=== PATIENT | female | born 1960 | race Caucasian/White ===

== ENCOUNTER 2017-05-03 18:34 | Emergency (ER) | payer OTHER ==
[~2017-05-03] VITALS: Ht 154.9 cm; Wt 49.0 kg
[2017-05-03] MEDS ORDERED: IV NORMAL SALINE 1,000ML 1,000 ML IV SCH (19:19)
[2017-05-03] MEDS ORDERED: ONDANSETRON PF 4 MG/2 ML VIAL. IV ONE (19:30)
[2017-05-03 19:48] LABS: BASO # 0.1 x10^3/uL (0.0-0.2); BASO % 1 % (0-3); EOS # 0.2 x10^3/uL (0.0-0.7); EOS % 1 % (0-3); HEMATOCRIT 43.9 % (36.0-47.0); LYMPH # 2.5 x10^3/uL (1.0-4.8); LYMPH % 17 % (24-48); MEAN CORPUSCULAR HEMOGLOBIN 31 pg (25-35); MEAN CORPUSCULAR HGB CONC 34 g/dL (31-37); MEAN CORPUSCULAR VOLUME 91 fL (79-100); MONO # 1.5 x10^3/uL (0.0-1.1); MONO % 10 % (0-9); NEUT # 10.3 x10^3uL (1.8-7.7); NEUT % 71 % (31-73); PLATELET COUNT 378 x10^3/uL (140-400); RED BLOOD COUNT 4.83 x10^6/uL (3.50-5.40); RED CELL DISTRIBUTION WIDTH 13.4 % (11.5-14.5); WHITE BLOOD COUNT 14.6 x10^3/uL (4.0-11.0)
[2017-05-03 19:48] LABS: BILIRUBIN,URINE NEG (NEG); CLARITY,URINE TURBID; COLOR,URINE YELLOW; GLUCOSE,URINE NEG (NEG); NITRITE,URINE NEG (NEG); UROBILINOGEN,URINE 4 mg/dL (0.2 mg/dL)
[2017-05-03 19:56] LABS: ALBUMIN/GLOBULIN RATIO 1.4 (1.0-1.7); CALCIUM 9.2 mg/dL (8.5-10.1); CREATININE 0.9 mg/dL (0.6-1.0); GFR 64.1; POTASSIUM 3.6 mmol/L (3.5-5.1); TOTAL BILIRUBIN 0.5 mg/dL (0.2-1.0); TOTAL PROTEIN 6.8 g/dL (6.4-8.2)
[2017-05-03 19:58] LABS: BACTERIA,URINE 0 /HPF (0-FEW); SQUAMOUS EPITHELIAL CELL,UR FEW /LPF; WBC,URINE OCC /HPF (0-4)
[2017-05-03 19:59] LABS: AMORPHOUS SEDIMENT,UR PRESENT /HPF
[2017-05-03] MEDS ORDERED: SUCR1TAB35 PO (20:52)
--- NOTE | 2017-05-03 20:53 | PHYS DOC ---
Past History Past Medical History: Anxiety, GERD Past Surgical History: Cholecystectomy Alcohol Use: None Drug Use: None Adult General Chief Complaint Chief Complaint: ABDOMINAL PAIN HPI HPI Patient is a 57 year old F who presents with constant crampy mid abdominal pain associated with nausea. She states that she had an episode of diarrhea just after the onset of symptoms. Just prior to her symptoms she did eat dinner. She had no symptoms prior to dinner and has had no symptoms previous. She feels that her symptoms resolved without intervention just prior to evaluation. She does have a history of anxiety and states that this episode felt similar to previous panic attacks. She has no other exacerbating or alleviating factors. She has no other associated symptoms. Review of Systems Review of Systems Constitutional: Denies fever or chills [] Eyes: Denies change in visual acuity, redness, or eye pain [] HENT: Denies nasal congestion or sore throat [] Respiratory: Denies cough or shortness of breath [] Cardiovascular: No additional information not addressed in HPI [] GI: Negative except history of present illness : Denies dysuria or hematuria [] Musculoskeletal: Denies back pain or joint pain [] Integument: Denies rash or skin lesions [] Neurologic: Denies headache, focal weakness or sensory changes [] Endocrine: Denies polyuria or polydipsia [] Family History Family History Noncontributory Current Medications Current Medications Current Medications Medications (Trade) Dose Ordered Sig/Donnie Start Time Stop Time Status Last Admin Dose Admin Ondansetron HCl (Zofran) 4 mg 1X ONCE 05/03/17 19:30 05/03/17 19:42 DC 05/03/17 19:50 4 MG Sodium Chloride 1,000 ml @ 1,000 mls/hr Q1H 05/03/17 19:19 05/03/17 20:18 DC 05/03/17 19:50 1,000 MLS/HR Allergies Allergies Allergies Coded Allergies Type Severity Reaction Last Updated Verified No Known Drug Allergies 05/03/17 No Physical Exam Physical Exam Constitutional: Well developed, well nourished, no acute distress, non-toxic appearance. [] HENT: Normocephalic, atraumatic, bilateral external ears normal, oropharynx moist, no oral exudates, nose normal. [] Eyes: EOMI, conjunctiva normal, no discharge. [] Neck: Normal range of motion, no tenderness, supple, no stridor. [] Cardiovascular:Heart rate regular rhythm, no murmur [] Lungs & Thorax: Bilateral breath sounds clear to auscultation [] Abdomen: Bowel sounds normal, soft, no tenderness, no masses, no pulsatile masses. [] Skin: Warm, dry, no erythema, no rash. [] Back: No tenderness, no CVA tenderness. [] Extremities: No tenderness, no cyanosis, no clubbing, ROM intact, no edema. [] Neurologic: Alert and oriented X 3, normal motor function, normal sensory function, no focal deficits noted. [] Psychologic: Affect normal, judgement normal, mood normal. [] Current Patient Data Vital Signs Vital Signs Date Time Temp Pulse Resp B/P (MAP) Pulse Ox O2 Delivery O2 Flow Rate FiO2 05/03/17 18:40 98.0 70 16 100 Room Air Lab Results Laboratory Tests Test 05/03/17 18:45 05/03/17 19:25 Urine Collection Type Unknown Urine Color Yellow Urine Clarity Turbid Urine pH 8.0 Urine Specific [place] 1.015 Urine Protein 30 mg/dl (NEG-TRACE) Urine Glucose (UA) Neg mg/dL (NEG) Urine Ketones (Stick) Neg mg/dL (NEG) Urine Blood Neg (NEG) Urine Nitrite Neg (NEG) Urine Bilirubin Neg (NEG) Urine Urobilinogen Dipstick 4 mg/dL (0.2 mg/dL) Urine Leukocyte Esterase Trace (NEG) Urine RBC 1-2 /HPF (0-2) Urine WBC Occ /HPF (0-4) Urine Squamous Epithelial Cells Few /LPF Urine Amorphous Sediment Present /HPF Urine Bacteria 0 /HPF (0-FEW) White Blood Count 14.6 x10^3/uL (4.0-11.0) H Red Blood Count 4.83 x10^6/uL (3.50-5.40) Hemoglobin 15.0 g/dL (12.0-15.5) Hematocrit 43.9 % (36.0-47.0) Mean Corpuscular Volume 91 fL (79-100) Mean Corpuscular Hemoglobin 31 pg (25-35) Mean Corpuscular Hemoglobin Concent 34 g/dL (31-37) Red Cell Distribution Width 13.4 % (11.5-14.5) Platelet Count 378 x10^3/uL (140-400) Neutrophils (%) (Auto) 71 % (31-73) Lymphocytes (%) (Auto) 17 % (24-48) L Monocytes (%) (Auto) 10 % (0-9) H Eosinophils (%) (Auto) 1 % (0-3) Basophils (%) (Auto) 1 % (0-3) Neutrophils # (Auto) 10.3 x10^3uL (1.8-7.7) H Lymphocytes # (Auto) 2.5 x10^3/uL (1.0-4.8) Monocytes # (Auto) 1.5 x10^3/uL (0.0-1.1) H Eosinophils # (Auto) 0.2 x10^3/uL (0.0-0.7) Basophils # (Auto) 0.1 x10^3/uL (0.0-0.2) Sodium Level 135 mmol/L (136-145) L Potassium Level 3.6 mmol/L (3.5-5.1) Chloride Level 97 mmol/L (98-107) L Carbon Dioxide Level 32 mmol/L (21-32) Anion Gap 6 (6-14) Blood Urea Nitrogen 12 mg/dL (7-20) Creatinine 0.9 mg/dL (0.6-1.0) Estimated GFR (Cockcroft-Gault) 64.1 BUN/Creatinine Ratio 13 (6-20) Glucose Level 96 mg/dL (70-99) Calcium Level 9.2 mg/dL (8.5-10.1) Total Bilirubin 0.5 mg/dL (0.2-1.0) Aspartate Amino Transferase (AST) 17 U/L (15-37) Alanine Aminotransferase (ALT) 21 U/L (14-59) Alkaline Phosphatase 85 U/L (46-116) Total Protein 6.8 g/dL (6.4-8.2) Albumin 4.0 g/dL (3.4-5.0) Albumin/Globulin Ratio 1.4 (1.0-1.7) Lipase 152 U/L (73-393) EKG EKG [] Radiology/Procedures Radiology/Procedures [] Course & Med Decision Making Course & Med Decision Making Pertinent Labs and Imaging studies reviewed. (See chart for details) Further imaging, labs and other testing were declined. Her symptoms improved without intervention. Dragon Disclaimer Dragon Disclaimer This chart was dictated in whole or in part using Voice Recognition software in a busy, high-work load, and often noisy Emergency Department environment. It may contain unintended and wholly unrecognized errors or omissions. Departure Departure: Impression: Primary Impression: Gastritis Disposition: HOME, SELF-CARE Condition: STABLE Referrals: IAN PHELPS MD (PCP) Patient Instructions: Gastritis, Adult Additional Instructions: Adriane was seen in the emergency department for abdominal pain. No emergency medical condition was found on history or physical exam. She did have normal labs. Her symptoms are most consistent with gastritis. She is given a prescription for Carafate to take prior to meals and advised follow-up with her primary care doctor in the next 3-5 days for further management. Scripts Sucralfate (CARAFATE) 1 Gm Tablet 1 TAB PO QID for 14 Days, #56 TAB 1 Refill Take prior to meals Prov: LEESA ACEVES MD 05/03/17 Problem Qualifiers Primary Impression: Gastritis Gastritis type: unspecified gastritis Chronicity: acute Gastritis bleeding : without bleeding Qualified Codes: K29.00 - Acute gastritis without bleeding LEESA ACEVES MD May 03, 2017 20:52
[2017-05-03 21:00] VITALS: BP 147/86
== END 2017-05-03 21:00 | disposition home or self-care (01) ==
LOC: ER 18:34
DX: K29.00 Acute gastritis without bleeding (principal); K21.9 Gastro-esophageal reflux disease without esophagitis; F41.9 Anxiety disorder, unspecified
CPT/HCPCS: 36415; 80053; 81001; 83690; 85025; 96361; 96374; 99284; J2405; J7030

== ENCOUNTER 2017-06-01 00:13 | Inpatient (IN) | payer OTHER ==
[~2017-06-01] VITALS: Ht 154.9 cm; Wt 47.3 kg
[~2017-06-01 00:13] MED LIST: SUCR1TAB35 PO
[2017-06-01] MEDS ORDERED: IV NORMAL SALINE 1,000ML 1,000 ML IV ONE (00:45)
[2017-06-01] MEDS ORDERED: ONDANSETRON PF 4 MG/2 ML VIAL. IV ONE (00:45)
[2017-06-01 01:18] LABS: BASO # 0.1 x10^3/uL (0.0-0.2); BASO % 1 % (0-3); EOS # 0.2 x10^3/uL (0.0-0.7); EOS % 2 % (0-3); HEMATOCRIT 38.8 % (36.0-47.0); LYMPH # 4.9 x10^3/uL (1.0-4.8); LYMPH % 38 % (24-48); MEAN CORPUSCULAR HEMOGLOBIN 32 pg (25-35); MEAN CORPUSCULAR HGB CONC 36 g/dL (31-37); MEAN CORPUSCULAR VOLUME 89 fL (79-100); MONO # 1.2 x10^3/uL (0.0-1.1); MONO % 9 % (0-9); NEUT # 6.7 x10^3uL (1.8-7.7); NEUT % 51 % (31-73); PLATELET COUNT 359 x10^3/uL (140-400); RED BLOOD COUNT 4.38 x10^6/uL (3.50-5.40); RED CELL DISTRIBUTION WIDTH 12.8 % (11.5-14.5); WHITE BLOOD COUNT 13.2 x10^3/uL (4.0-11.0)
--- NOTE | 2017-06-01 01:22 | EKG ---
[address] [address] Test Date: 2017-06-01 Test Time: 00:57:27 Pat Name: RENEE MCNEIL Department: Room: Gender: F Teaching Aide: LORRIE : 1960 Requested By: TABITHA HARO Order Number: [id number] Reading MD: Measurements Intervals [place] Rate: 58 P: 45 HI: 196 QRS: 58 QRSD: 92 T: 59 QT: 458 QTc: 449 Interpretive Statements SINUS RHYTHM LEFT ATRIAL ABNORMALITY QRS(T) CONTOUR ABNORMALITY CONSISTENT WITH ANTERIOR INFARCT AGE UNDETERMINED ABNORMAL ECG RI6.01 Unconfirmed report No previous ECG available for comparison
[2017-06-01 01:26] LABS: ALBUMIN 4.1 g/dL (3.4-5.0); ALBUMIN/GLOBULIN RATIO 1.5 (1.0-1.7); CALCIUM 8.6 mg/dL (8.5-10.1); CREATININE 0.6 mg/dL (0.6-1.0); GFR 102.3; TOTAL BILIRUBIN 0.6 mg/dL (0.2-1.0); TOTAL PROTEIN 6.8 g/dL (6.4-8.2)
[2017-06-01 01:28] LABS: POTASSIUM 2.8 mmol/L (3.5-5.1)
[2017-06-01] MEDS ORDERED: DICYCLOMINE HCL 20 MG TABLET PO ONE (01:45)
[2017-06-01 02:00] LABS: BACTERIA,URINE 0 /HPF (0-FEW); BILIRUBIN,URINE NEG (NEG); CLARITY,URINE HAZY; COLOR,URINE STRAW; GLUCOSE,URINE NEG (NEG); NITRITE,URINE NEG (NEG); RBC,URINE RARE /HPF (0-2); SQUAMOUS EPITHELIAL CELL,UR OCC /LPF; UROBILINOGEN,URINE 0.2 mg/dL (0.2 mg/dL); WBC,URINE RARE /HPF (0-4)
[2017-06-01] MEDS ORDERED: MORPHINE SULFATE 2 MG/ML DISP.SYRIN. IV PRN (02:30)
[2017-06-01] MEDS ORDERED: ONDANSETRON PF 4 MG/2 ML VIAL. IV PRN (02:30)
[2017-06-01] MEDS ORDERED: NITROGLYCERIN SUBLINGUAL 0.4 MG BOTTLE OF 25. SL PRN (02:30)
--- NOTE | 2017-06-01 03:16 | EKG ---
[address] [address] Test Date: 2017-06-01 Test Time: 01:53:31 Pat Name: RENEE MCNEIL Department: Room: Gender: F Strategies Analyst: LORRIE : 1960 Requested By: TABITHA HARO Order Number: [id number] Reading MD: Measurements Intervals [place] Rate: 62 P: 60 [place]: 202 QRS: 51 QRSD: 84 T: 62 QT: 452 QTc: 461 Interpretive Statements SINUS RHYTHM QRS(T) CONTOUR ABNORMALITY CONSISTENT WITH ANTERIOR INFARCT AGE UNDETERMINED ABNORMAL ECG RI6.01 Unconfirmed report No previous ECG available for comparison
[2017-06-01] MEDS ORDERED: PANT40TA5 PO (03:45)
[2017-06-01] MEDS ORDERED: XOPENEX1.25 MG/3 NEB (03:45)
[2017-06-01] MEDS ORDERED: GUAI-108 PO (03:45)
[2017-06-01] MEDS ORDERED: MINO100C PO (03:45)
[2017-06-01] MEDS ORDERED: BENZ100C15 PO (03:45)
[2017-06-01] MEDS ORDERED: BUPR300T4 PO (03:45)
[2017-06-01] MEDS: IV NORMAL SALINE 1,000ML 1,000 ML IV SCH ×2 (04:20→18:14)
[2017-06-01] MEDS: POTASSIUM CHLORIDE 10MEQ 100 ML IV SCH ×4 (04:20→09:46)
[2017-06-01 04:29] VITALS: BP 160/78
[2017-06-01] MEDS ORDERED: MULT1TAB52 PO (04:59)
[2017-06-01] MEDS ORDERED: FISH12002 PO (04:59)
--- NOTE | 2017-06-01 06:01 | PHYS DOC ---
Past History Past Medical History: Bronchitis, Depression, Gallstones, GERD, Other Past Surgical History: Cholecystectomy Alcohol Use: None Drug Use: None Adult General Chief Complaint Chief Complaint: WEAKNESS/GENERALIZED HPI HPI Patient is a 57 year old female who presents with syncope. The patient reports onset of symptoms just prior to arrival, had onset of generalized weakness, lightheadedness, nausea, abdominal cramps. She lowered herself to the ground, may have lost consciousness. Denies fevers/chills, headache, vision changes, chest pain, shortness of breath, vomiting, diarrhea, dysuria, unilateral extremity numbness/weakness. She has history of bronchitis & has been taking steroids at home for acute exacerbation, today denies significant cough. Review of Systems Review of Systems Constitutional: Denies fever or chills Eyes: Denies change in visual acuity HENT: Denies nasal congestion or sore throat Respiratory: Denies cough or shortness of breath Cardiovascular: Denies chest pain or edema GI: Reports nausea. Denies abdominal pain, vomiting, bloody stools or diarrhea : Denies dysuria or hematuria Musculoskeletal: Denies back pain or joint pain Integument: Denies rash or skin lesions Neurologic: Denies headache, focal weakness or sensory changes All other systems were reviewed and found to be within normal limits, except as documented in this note. Current Medications Current Medications Current Medications Medications (Trade) Dose Ordered Sig/Donnie Start Time Stop Time Status Last Admin Dose Admin Ondansetron HCl (Zofran) 4 mg 1X ONCE 06/01/17 00:45 06/01/17 02:38 DC 06/01/17 01:00 4 MG Sodium Chloride 1,000 ml @ 1,000 mls/hr 1X ONCE 06/01/17 00:45 06/01/17 02:38 DC 06/01/17 00:59 1,000 MLS/HR Allergies Allergies Allergies Coded Allergies Type Severity Reaction Last Updated Verified No Known Drug Allergies 05/03/17 No Physical Exam Physical Exam Constitutional: Well developed, well nourished, no acute distress, non-toxic appearance. HENT: Normocephalic, atraumatic, bilateral external ears normal, oropharynx moist, posterior oropharynx mild erythema without tonsillar enlargment/exudate, nose normal. Eyes: PERRLA, EOMI, conjunctiva normal, no discharge. Neck: supple, no stridor. no meningismus. Cardiovascular: RRR, no murmurs, no edema. Lungs & Thorax: LCTAB, no wheezing, no respiratory distress. Abdomen: soft, no abdominal tenderness with palpation in all 4 quadrants, no rebound or guarding, no masses or pulsatile masses, nondistended. Skin: Warm, dry, no erythema, no rash. Back: No CVA tenderness. Extremities: No tenderness, no edema. Neurologic: Alert and oriented X 3, cranial nerves 2-12 grossly intact, symmetric strength/sensation to upper & lower extremities, no focal deficits noted. Psychologic: Affect normal, judgement normal, mood normal. Current Patient Data Vital Signs Vital Signs Date Time Temp Pulse Resp B/P (MAP) Pulse Ox O2 Delivery O2 Flow Rate FiO2 06/01/17 04:47 Room Air 06/01/17 04:29 97.7 67 16 160/78 (105) 96 Lab Results Laboratory Tests Test 06/01/17 00:51 06/01/17 01:40 White Blood Count 13.2 x10^3/uL (4.0-11.0) H Red Blood Count 4.38 x10^6/uL (3.50-5.40) Hemoglobin 14.0 g/dL (12.0-15.5) Hematocrit 38.8 % (36.0-47.0) Mean Corpuscular Volume 89 fL (79-100) Mean Corpuscular Hemoglobin 32 pg (25-35) Mean Corpuscular Hemoglobin Concent 36 g/dL (31-37) Red Cell Distribution Width 12.8 % (11.5-14.5) Platelet Count 359 x10^3/uL (140-400) Neutrophils (%) (Auto) 51 % (31-73) Lymphocytes (%) (Auto) 38 % (24-48) Monocytes (%) (Auto) 9 % (0-9) Eosinophils (%) (Auto) 2 % (0-3) Basophils (%) (Auto) 1 % (0-3) Neutrophils # (Auto) 6.7 x10^3uL (1.8-7.7) Lymphocytes # (Auto) 4.9 x10^3/uL (1.0-4.8) H Monocytes # (Auto) 1.2 x10^3/uL (0.0-1.1) H Eosinophils # (Auto) 0.2 x10^3/uL (0.0-0.7) Basophils # (Auto) 0.1 x10^3/uL (0.0-0.2) Sodium Level 124 mmol/L (136-145) L Potassium Level 2.8 mmol/L (3.5-5.1) *L Chloride Level 86 mmol/L (98-107) L Carbon Dioxide Level 31 mmol/L (21-32) Anion Gap 7 (6-14) Blood Urea Nitrogen 6 mg/dL (7-20) L Creatinine 0.6 mg/dL (0.6-1.0) Estimated GFR (Cockcroft-Gault) 102.3 BUN/Creatinine Ratio 10 (6-20) Glucose Level 102 mg/dL (70-99) H Calcium Level 8.6 mg/dL (8.5-10.1) Total Bilirubin 0.6 mg/dL (0.2-1.0) Aspartate Amino Transferase (AST) 22 U/L (15-37) Alanine Aminotransferase (ALT) 25 U/L (14-59) Alkaline Phosphatase 85 U/L (46-116) Troponin I Quantitative < 0.017 ng/mL (0-0.055) Total Protein 6.8 g/dL (6.4-8.2) Albumin 4.1 g/dL (3.4-5.0) Albumin/Globulin Ratio 1.5 (1.0-1.7) Lipase 95 U/L (73-393) Urine Collection Type Unknown Urine Color Straw Urine Clarity Hazy Urine pH 8.5 Urine Specific [place] 1.015 Urine Protein Neg (NEG-TRACE) Urine Glucose (UA) Neg mg/dL (NEG) Urine Ketones (Stick) Neg mg/dL (NEG) Urine Blood Trace (NEG) Urine Nitrite Neg (NEG) Urine Bilirubin Neg (NEG) Urine Urobilinogen Dipstick 0.2 mg/dL (0.2 mg/dL) Urine Leukocyte Esterase Trace (NEG) Urine RBC Rare /HPF (0-2) Urine WBC Rare /HPF (0-4) Urine Squamous Epithelial Cells Occ /LPF Urine Bacteria 0 /HPF (0-FEW) EKG EKG Interpreted by : [id number]: Normal sinus rhythm rate 58, very slight ST elevations in V1 and V2 only with deep inverted T waves, no reciprocal changes, Q waves in anterior leads, normal intervals, no ectopy. Interpreted by me: [id number]: Normal sinus rhythm rate 62, no significant change in leads V1 and V2 from previous EKG, normal intervals, no ectopy.[] No old EKG available for comparison. Radiology/Procedures Radiology/Procedures Chest x-ray: Interpreted by me: No cardiomegaly, no infiltrate, no pneumothorax , diaphragmatic flattening and lung hyperinflation present[] Course & Med Decision Making Course & Med Decision Making Pertinent Labs and Imaging studies reviewed. (See chart for details) The patient presents with near-syncope/syncope and generalized weakness. No focal findings on exam. She has no persistent abdominal pain despite having abdominal cramps at home. She was found to have hypokalemia, hyponatremia on evaluation here. Gave IV potassium and IV fluids. Recommended admission to hospital for further evaluation and treatment. Patient agrees with plan of care. Discussed with Dr. Hubbard who agrees to admit to inpatient status. The patient is being admitted in stable condition. [] Dragon Disclaimer Dragon Disclaimer This electronic medical record was generated, in whole or in part, using a voice recognition dictation system. Departure Departure: Impression: Primary Impression: Hypokalemia Additional Impression: Weakness Disposition: ADMITTED INPATIENT Admitting Physician: Riri Hubbard Condition: GUARDED Problem Qualifiers TABITHA HARO MD Jun 01, 2017 06:01
[2017-06-01 06:14] VITALS: BP 131/79
--- NOTE | 2017-06-01 07:12 | RAD ---
Chest, 2 views, 06/01/2017: History: Cough, shortness of breath Comparison made to a study from 09/06/2006. The heart size is normal. There is calcific plaquing of the aorta. No pulmonary infiltrates are seen. There is no evidence of pleural fluid. IMPRESSION: No acute cardiopulmonary abnormality is detected.
[2017-06-01] MEDS: IPRATRPIUM/ALBUTEROL 0.5/2.5MG 3 ML NEBU. NEB SCH ×4 (08:00→19:53)
[2017-06-01] MEDS: SUCRALFATE 1 GM TABLET. PO SCH ×4 (08:07→20:55)
[2017-06-01] MEDS: PANTOPRAZOLE 40 MG TABLET. PO SCH (08:07)
[2017-06-01] MEDS ORDERED: PRED20TA PO (08:22)
[2017-06-01] MEDS: ACETAMINOPHEN 325 MG TABLET PO PRN ×2 (08:40→16:15)
[2017-06-01] MEDS ORDERED: PANTOPRAZOLE 40 MG TABLET. PO SCH (09:00)
[2017-06-01] MEDS ORDERED: SUCRALFATE 1 GM TABLET. PO SCH (09:00)
[2017-06-01 11:01] VITALS: BP 157/77
[2017-06-01 14:26] VITALS: BP 162/67
[2017-06-01] MEDS ORDERED: BENZONATATE 100 MG CAPSULE. PO PRN (17:30)
[2017-06-01 17:48] LABS: CALCIUM 8.4 mg/dL (8.5-10.1); CREATININE 0.7 mg/dL (0.6-1.0); GFR 85.6; POTASSIUM 4.1 mmol/L (3.5-5.1)
[2017-06-01] MEDS: AMPICILLIN/SULBACTAM 1.5 GM in IV NORMAL SALINE 50ML 50 ML IV SCH ×2 (18:15→23:51)
--- NOTE | 2017-06-01 18:53 | RAD ---
CT maxillofacial without contrast 06/01/2017 CLINICAL INDICATION: Facial pain specifically over the maxillary sinuses. COMPARISON: None. TECHNIQUE: Multiple CT images of the maxillofacial region were obtained without contrast according to standard protocol. *One or more of the following individualized dose reduction techniques were utilized for this examination: 1. Automated exposure control. 2. Adjustment of the mA and/or kV according to patient size. 3. Use of iterative reconstruction technique. FINDINGS: The maxillary sinus duran, pterygoid plates, orbital rims, nasal bones, zygomatic arches are unremarkable without evidence of acute displaced fracture. Mastoid air cells and visualized paranasal sinuses are well aerated. Globes and orbits are unremarkable. IMPRESSION: No significant paranasal sinus mucosal thickening or evidence of acute maxillofacial fracture. Electronically signed by: John Thomas MD (06/01/2017 6:50 PM) [facility]
[2017-06-01 19:15] VITALS: BP 168/81
--- NOTE | 2017-06-01 19:46 | HP ---
ADMIT DATE: 06/01/2017 HISTORY OF PRESENT ILLNESS: The patient is a 57-year-old female patient who apparently came to the Emergency Room with this seems to be syncope. The patient reports signs and symptoms prior to arrival. She also denied weakness, lightheadedness, nausea, abdominal cramps. She lowered herself to the ground and stated that she has not lost consciousness. She denied any other complaint. She was evaluated in the Emergency Room as was found to have hypokalemia, generalized weakness, and hyponatremia. Her white cell count is 13,200 and was admitted for further evaluation and treatment. PAST MEDICAL HISTORY: Significant for peptic ulcer disease, gastroesophageal reflux disease, and also chronic bronchitis. PAST SURGICAL HISTORY: Significant for hernia repair, cholecystectomy. ALLERGIES: She has no known drug allergies. MEDICATIONS: She is currently on following medications: She is on benzonatate 100 mg q.4 hourly, Wellbutrin 300 mg once a day, fish oil, omega-3 1200 mg once a day, guaifenesin dextromethorphan, Mucinex DM 1 tablet twice a day, levalbuterol, Xopenex by nebulizer 4 times a day, minocycline 100 mg twice a day, multivitamin 1 tablet once a day, Protonix 40 mg once a day, prednisone 20 mg b.i.d., and sucralfate for Carafate 1 g p.o. 4 times a day. FAMILY HISTORY: She has 2 brothers and 1 sister younger and alive. One brother older at the age of 71 because of lung cancer. One sister older, the cause of is not clear. Her father at age of 65 because of myocardial infarction, and mother at the age of 70 because of Alzheimer's disease and abdominal cancer that was inoperable. SOCIAL HISTORY: She is , has 2 daughters and 1 son. She smokes 5 cigarettes per day for 15 years. She does not drink alcohol or use any drugs. She is an educational tech . REVIEW OF SYSTEMS: The patient denied any blurring of vision, cataract, glaucoma or macular degeneration. Denied any earache, tinnitus or sensorineural deafness. Denied any nosebleeds, stuffy nose or postnasal drip. Denied any sore throat, sore tongue, toothache, hoarseness of voice or difficulty swallowing. Denied any nausea, vomiting, diarrhea or constipation. Denied any hematemesis, melena or hematochezia. Denied any dysuria, frequency or hematuria. Denied any chest pain. Did complain of shortness of breath, cough with scanty sputum. Denied any chills, rigors or fever. PHYSICAL EXAMINATION: GENERAL: On examining her, she looked well and was clearly in no apparent respiratory distress, no pallor, jaundice, cyanosis or thyromegaly. No jugular venous distention. No limb edema. VITAL SIGNS: Heart rate was 63, blood pressure was 160/78, temperature was 97.5, respiratory rate was 20, and oxygen saturation was 96% on room air. HEAD, EYES, EARS, NOSE, AND THROAT: Showed normocephalic, atraumatic. NECK: Supple. HEART: Showed normal first and second sounds. No gallop, rub or murmur. CHEST: Clear to auscultation. No crepitation or rhonchi. ABDOMEN: Distended, soft, and nontender. No guarding or rigidity. No organomegaly. Hernial orifice intact. Bowel sounds normal. NEUROLOGIC: She is awake, alert, responding appropriately. All cranial nerves intact. She moves extremities without difficulty. She ambulates without assistance or assistive devices. LABORATORY DATA: While in the Emergency Room, she had lab work, which showed a white cell count of 13,200, hemoglobin 14, hematocrit 39, MCV 89, and platelet count of 359,000 with normal manual differential. Her chemistry showed marked hyponatremia with a serum sodium 124, potassium 2.8, chloride 86, bicarbonate 31, anion gap of 7, BUN 6, creatinine 0.6, estimated GFR was 102 mL per minute. Her glucose was 102, calcium was 8.6. Total bilirubin, AST, ALT, alkaline phosphatase were normal. Her total protein was 6.8, albumin was 4.1, and lipase was 95. She has 3 sets of cardiac enzymes that were all negative. Urinalysis showed the urine was straw colored, hazy with a pH of 8.5, specific gravity of 1.015. The urine was negative for protein, glucose, ketones, trace of blood, negative for nitrite, trace of leukocyte esterase, and rare rbc's, rare wbc's, and no bacteria. Her chest x-ray showed the heart size is normal, and there is calcific plaquing of the aorta, no pulmonary infiltrates are seen. There is no evidence of pleural fluid. No acute cardiopulmonary abnormalities detected. PLAN: My plan is to arrange for a CT scan of the paranasal sinuses. I will hold the Wellbutrin as it might be the cause of hyponatremia due to inappropriate antidiuretic hormone syndrome. Continue to replenish her potassium and continue with normal saline, and I will continue with doxycycline for now. DANGELO DOMÍNGUEZ MD DR: FARA/lawrence JOB#: [id number] / [id number]
[2017-06-01] MEDS: ALBUTEROL SULFATE 2.5 MG/3 ML NEBU. NEB SCH (19:53)
[2017-06-01] MEDS: predniSONE 20 MG TABLET PO SCH (20:55)
[2017-06-01] MEDS: MINOCYCLINE 100 MG CAPSULE PO SCH (20:55)
[2017-06-01] MEDS ORDERED: NON FORMULARY ITEM (Levalbuterol Hcl (Xopenex) 1 VIAL) NEB SCH (21:00)
[2017-06-01 23:55] VITALS: BP 143/72
[2017-06-02] MEDS: IV NORMAL SALINE 1,000ML 1,000 ML IV SCH (03:43)
[2017-06-02] MEDS: AMPICILLIN/SULBACTAM 1.5 GM in IV NORMAL SALINE 50ML 50 ML IV SCH ×2 (05:27→11:37)
[2017-06-02] MEDS: ALBUTEROL SULFATE 2.5 MG/3 ML NEBU. NEB SCH ×2 (05:35→11:01)
[2017-06-02 05:36] VITALS: BP 130/64
[2017-06-02] MEDS: PANTOPRAZOLE 40 MG TABLET. PO SCH (07:18)
[2017-06-02] MEDS: SUCRALFATE 1 GM TABLET. PO SCH ×2 (07:18→11:37)
[2017-06-02 08:08] LABS: HEMATOCRIT 39.2 % (36.0-47.0); HEMOGLOBIN 13.7 g/dL (12.0-15.5); RED BLOOD COUNT 4.27 x10^6/uL (3.50-5.40); RED CELL DISTRIBUTION WIDTH 13.2 % (11.5-14.5); WHITE BLOOD COUNT 10.4 x10^3/uL (4.0-11.0)
[2017-06-02] MEDS: MINOCYCLINE 100 MG CAPSULE PO SCH (08:24)
[2017-06-02] MEDS: predniSONE 20 MG TABLET PO SCH (08:24)
[2017-06-02 08:38] LABS: ALBUMIN 3.5 g/dL (3.4-5.0); ALBUMIN/GLOBULIN RATIO 1.3 (1.0-1.7); CALCIUM 8.7 mg/dL (8.5-10.1); CREATININE 0.6 mg/dL (0.6-1.0); GFR 102.3; POTASSIUM 4.1 mmol/L (3.5-5.1); TOTAL BILIRUBIN 0.2 mg/dL (0.2-1.0); TOTAL PROTEIN 6.3 g/dL (6.4-8.2)
[2017-06-02] MEDS ORDERED: MULTIVITAMIN with MINERAL TABLET. PO SCH (09:00)
[2017-06-02] MEDS ORDERED: LACTOBACILLUS RHAMNOSUS GG 1 CAPSULE. PO SCH (09:00)
[2017-06-02] MEDS ORDERED: OMEGA-3 FATTY ACIDS/FISH OIL 1,000 MG CAPSULE. PO SCH (09:00)
[2017-06-02 10:24] VITALS: BP 128/82
--- NOTE | 2017-06-02 12:06 | EKG ---
[facility] [address] [place] [address] Test Date: 2017-06-01 Test Time: 11:27:29 Pat Name: RENEE MCNEIL Department: Room: Gender: F Relish Blender: : 1960 Requested By: TABITHA HARO Order Number: [id number] Reading MD: Measurements Intervals [place] Rate: P: [place]: QRS: QRSD: T: QT: QTc: Interpretive Statements
--- NOTE | 2017-06-03 01:06 | DS ---
DATE OF DISCHARGE: 06/02/2017 HOSPITAL COURSE: The patient is a 57-year-old female patient who came to the Emergency Room was admitted with a complaint of what seemed to be syncope. She denied loss of consciousness. She apparently felt dizzy and lowered herself to the ground and stated that she has not lost consciousness. She denied any other complaint. She was found to be extremely hypokalemic, hyponatremic. Her white cell count was slightly elevated and was admitted for further evaluation and treatment. We did start her on IV fluid, together with potassium and her potassium has improved from 2.8 to 4.1. Her sodium also has improved to 124-138. We did chest x-ray and maxillofacial CT scan. Her paranasal sinuses showed no significant mucosal thickening or evidence of acute maxillofacial sinus fracture. Her chest x-ray showed there is no acute cardiopulmonary abnormality detected. As all her electrolyte abnormalities normalized, she has been up and about with no further episodes of dizziness or lightheadedness. There is no evidence that she has any infection in her lungs, sinuses, or urine. I therefore discontinued her IV Unasyn and recommended that she should follow with her primary care physician in 1 week's time to repeat her CBC and a CMP. She may go back to work on , 06/04/2017. PHYSICAL EXAMINATION GENERAL: When I examined her this afternoon, she looked well and was clearly in no apparent respiratory distress, pale but no jaundice, cyanosis, or thyromegaly. No jugular venous distension. No limb edema. VITAL SIGNS: Her heart rate was 95, blood pressure 128/82, temperature was 97.3, respiratory rate was 18, and oxygen saturation was 99% on room air. HEAD, EYES, EARS, NOSE AND THROAT: Normocephalic, atraumatic. NECK: Supple. HEART: Showed normal first and second sounds. No gallop, rub, or murmur. CHEST: Clear to auscultation. No crepitation or rhonchi. ABDOMEN: Distended, soft, nontender. No guarding or rigidity. No organomegaly. Hernial orifices intact. Bowel sounds normal. NEUROLOGIC: She is awake, alert, responding appropriately. Cranial nerves intact. She moves extremities without difficulty. She ambulates without assistance or assistive devices. Her intake over the last 24 hours was 3700, no output was recorded. LABORATORY DATA: Her lab work this morning showed serum sodium 138, potassium 4.1, chloride 105, bicarbonate 29, anion gap of 4, BUN 5, creatinine 0.6, estimated GFR was 102 mL per minute. Her glucose was 72, BUN 87. Her Total bilirubin, AST, ALT, alkaline phosphatase were normal. Total protein 6.3, albumin 3.5. White cell count was 10,400, hemoglobin 13.7, hematocrit 39, MCV 92, and platelet count 341,000. DISCHARGE MEDICATIONS: The patient was discharged home to continue on her home medications and to follow with her primary care physician and will need time to check her potassium and sodium. FINAL DISCHARGE DIAGNOSES: 1. Severe hypokalemia, resolved. 2. Hyponatremia, resolved. 3. Generalized weakness and dizziness, resolved. DANGELO DOMÍNGUEZ MD DR: FARA/lawrence JOB#: [id number] / [id number]
== END 2017-06-02 15:45 | disposition home or self-care (01) | DRG 641 ==
LOC: ER 00:13 → 1 SOUTH 01:42
PROVIDERS: ADMIT Family Medicine; ATTEND Family Medicine
DX: E87.6 Hypokalemia (principal); E22.2 Syndrome of inappropriate secretion of antidiuretic hormone; J42 Unspecified chronic bronchitis; K21.9 Gastro-esophageal reflux disease without esophagitis; F32.9 Major depressive disorder, single episode, unspecified; F17.210 Nicotine dependence, cigarettes, uncomplicated; Z80.1 Family history of malignant neoplasm of trachea, bronchus and lung; Z80.8 Family history of malignant neoplasm of other organs or systems; Z82.0 Family history of epilepsy and other diseases of the nervous system; Z82.49 Family history of ischemic heart disease and other diseases of the circulatory system; Z87.11 Personal history of peptic ulcer disease; Z90.49 Acquired absence of other specified parts of digestive tract
CPT/HCPCS: 36415; 70486; 71020; 80048; 80053; 81001; 82533; 83690; 84443; 84484; 85025; 85027; 87086; 93005; 94640; 96361; 96374; 96375; J0295; J2270; J2405; J3010; J3480; J7512; J7613; J7620; 99285-25; J7030

== ENCOUNTER 2018-02-07 10:57 | Emergency (ER) | payer OTHER ==
[~2018-02-07] VITALS: Ht 154.9 cm; Wt 47.6 kg
[~2018-02-07 10:57] MED LIST changes: +BENZ-8 PO; +BUPR300T4 PO; +FISH12002 PO; +GUAI-108 PO; +MINO100C PO; +MULT1TAB52 PO; +PANT40TA5 PO; +PRED20TA PO; +XOPENEX1.25 MG/3 NEB
[2018-02-07] MEDS ORDERED: IV NORMAL SALINE 1,000ML 1,000 ML IV ONE (11:15)
[2018-02-07 11:42] LABS: BASO # 0.1 x10^3/uL (0.0-0.2); BASO % 1 % (0-3); EOS # 0.1 x10^3/uL (0.0-0.7); EOS % 1 % (0-3); HEMATOCRIT 42.6 % (36.0-47.0); LYMPH # 1.8 x10^3/uL (1.0-4.8); LYMPH % 28 % (24-48); MEAN CORPUSCULAR HEMOGLOBIN 32 pg (25-35); MEAN CORPUSCULAR HGB CONC 35 g/dL (31-37); MEAN CORPUSCULAR VOLUME 91 fL (79-100); MONO # 0.8 x10^3/uL (0.0-1.1); MONO % 12 % (0-9); NEUT # 3.7 x10^3uL (1.8-7.7); NEUT % 58 % (31-73); PLATELET COUNT 353 x10^3/uL (140-400); RED BLOOD COUNT 4.68 x10^6/uL (3.50-5.40); RED CELL DISTRIBUTION WIDTH 12.9 % (11.5-14.5); WHITE BLOOD COUNT 6.5 x10^3/uL (4.0-11.0)
--- NOTE | 2018-02-07 11:46 | RAD ---
CT head without contrast TECHNIQUE: [address] imaging skull base to vertex. HISTORY: Weakness with headache, dizziness. FINDINGS: No intracranial hemorrhage, mass, hydrocephalus, extra-axial fluid collections or infarction. No acute ischemic change. Orbits, mastoids, paranasal sinuses and bones are unremarkable. IMPRESSION: No acute intracranial CT abnormality. Exposure: One or more of the following individualized dose reduction techniques were utilized for this examination: 1. Automated exposure control 2. Adjustment of the mA and/or kV according to patient size 3. Use of iterative reconstruction technique Electronically signed by: Long Kendall MD (02/07/2018 11:42 AM) [facility] [place]
--- NOTE | 2018-02-07 11:54 | PHYS DOC ---
Past History Past Medical History: Bronchitis, Depression, Gallstones, GERD, Other Past Surgical History: Cholecystectomy Alcohol Use: None Drug Use: None Adult General Chief Complaint Chief Complaint: FATIGUE HPI HPI Patient is a 57-year-old female who presents to the emergency department complaining of feeling flushed and weak while at [employer] today. Patient states that these symptoms started abruptly and denies being in any pain. Patient states that sitting down makes the symptoms better. She also states that several days ago she fell backwards and hit her head. She denies any loss of consciousness. At the time of the interview with the patient, she states that she is feeling better now. She denies feeling weak. She also states that she has been drinking plenty of fluids. Review of Systems Review of Systems Constitutional: Denies fever or chills [] Eyes: Denies change in visual acuity, redness, or eye pain [] HENT: Denies nasal congestion or sore throat [] Respiratory: Denies cough or shortness of breath [] Cardiovascular: Denies chest pain and palpitations[] GI: Denies abdominal pain, nausea, vomiting, bloody stools or diarrhea [] : Denies dysuria or hematuria [] Musculoskeletal: Endorses upper back pain [] Integument: Denies rash or skin lesions [] Neurologic: Denies headache, focal weakness or sensory changes [] Complete systems were reviewed and found to be within normal limits, except as documented in this note. Current Medications Current Medications Current Medications Medications (Trade) Dose Ordered Sig/Donnie Start Time Stop Time Status Last Admin Dose Admin Sodium Chloride 1,000 ml @ 1,000 mls/hr 1X ONCE 02/07/18 11:15 02/07/18 12:14 Allergies Allergies Allergies Coded Allergies Type Severity Reaction Last Updated Verified No Known Drug Allergies 05/03/17 No Physical Exam Physical Exam Constitutional: Well developed, well nourished, no acute distress, non-toxic appearance. [] HENT: Normocephalic, atraumatic, bilateral external ears normal, oropharynx moist, no oral exudates, nose normal. [] Eyes: PERRL, EOMI. [] Neck: Normal range of motion, no tenderness, supple, no stridor. [] Cardiovascular:Heart rate regular rhythm, no murmur [] Lungs & Thorax: Bilateral breath sounds clear to auscultation [] Abdomen: Bowel sounds normal, soft, no tenderness, no masses, no pulsatile masses. [] Skin: Warm, dry, no erythema, no rash. [] Back: Bilateral upper back muscle tenderness[] Extremities: No tenderness, no cyanosis, no clubbing, ROM intact, no edema. [] Neurologic: Alert and oriented X 3, normal motor function, normal sensory function, no focal deficits noted. [ Current Patient Data Vital Signs Vital Signs Date Time Temp Pulse Resp B/P (MAP) Pulse Ox O2 Delivery O2 Flow Rate FiO2 02/07/18 11:20 97.6 76 20 100 Room Air Lab Results Laboratory Tests Test 02/07/18 11:28 White Blood Count 6.5 x10^3/uL (4.0-11.0) Red Blood Count 4.68 x10^6/uL (3.50-5.40) Hemoglobin 15.0 g/dL (12.0-15.5) Hematocrit 42.6 % (36.0-47.0) Mean Corpuscular Volume 91 fL (79-100) Mean Corpuscular Hemoglobin 32 pg (25-35) Mean Corpuscular Hemoglobin Concent 35 g/dL (31-37) Red Cell Distribution Width 12.9 % (11.5-14.5) Platelet Count 353 x10^3/uL (140-400) Neutrophils (%) (Auto) 58 % (31-73) Lymphocytes (%) (Auto) 28 % (24-48) Monocytes (%) (Auto) 12 % (0-9) H Eosinophils (%) (Auto) 1 % (0-3) Basophils (%) (Auto) 1 % (0-3) Neutrophils # (Auto) 3.7 x10^3uL (1.8-7.7) Lymphocytes # (Auto) 1.8 x10^3/uL (1.0-4.8) Monocytes # (Auto) 0.8 x10^3/uL (0.0-1.1) Eosinophils # (Auto) 0.1 x10^3/uL (0.0-0.7) Basophils # (Auto) 0.1 x10^3/uL (0.0-0.2) EKG EKG NSR at 85bpm, No ST elevation, nonspecific t wave inversion to I and aVL, Obtained at 1152 on 02/07/18 Radiology/Procedures Radiology/Procedures PROCEDURE: CT HEAD WO CONTRAST CT head without contrast TECHNIQUE: [address] imaging skull base to vertex. HISTORY: Weakness with headache, dizziness. FINDINGS: No intracranial hemorrhage, mass, hydrocephalus, extra-axial fluid collections or infarction. No acute ischemic change. Orbits, mastoids, paranasal sinuses and bones are unremarkable. IMPRESSION: No acute intracranial CT abnormality. Course & Med Decision Making Course & Med Decision Making Pertinent Labs and Imaging studies reviewed. (See chart for details) Patient is a 57-year-old female who presents to emergency department complaining of feeling flushed and weak. Supportive measures provided. EKG and UA ordered. [] Dragon Disclaimer Dragon Disclaimer This electronic medical record was generated, in whole or in part, using a voice recognition dictation system. Departure Departure: Impression: Primary Impression: Weakness Additional Impression: Hyponatremia Disposition: 01 HOME, SELF-CARE Condition: IMPROVED Referrals: TAPAN PEÑALOZA DO (PCP) Patient Instructions: Hyponatremia, Fjqe-[id number], Weakness, [id number] Problem Qualifiers ANH CASTORENA DO Feb 07, 2018 11:54
[2018-02-07 12:08] LABS: ALBUMIN 3.9 g/dL (3.4-5.0); ALBUMIN/GLOBULIN RATIO 1.6 (1.0-1.7); CALCIUM 9.9 mg/dL (8.5-10.1); GFR 56.7; MAGNESIUM 1.9 mg/dL (1.8-2.4); POTASSIUM 3.6 mmol/L (3.5-5.1); TOTAL BILIRUBIN 0.5 mg/dL (0.2-1.0); TOTAL PROTEIN 6.4 g/dL (6.4-8.2)
[2018-02-07 12:24] LABS: BILIRUBIN,URINE NEG (NEG); CLARITY,URINE HAZY; COLOR,URINE YELLOW; GLUCOSE,URINE NEG (NEG)
[2018-02-07 12:25] LABS: BACTERIA,URINE FEW /HPF (0-FEW); GRANULAR CASTS,URINE FEW /HPF; HYALINE CASTS, URINE MOD /HPF; NITRITE,URINE NEG (NEG); SQUAMOUS EPITHELIAL CELL,UR FEW /LPF; UROBILINOGEN,URINE 0.2 mg/dL (0.2 mg/dL)
--- NOTE | 2018-02-07 12:31 | EKG ---
[address] [address] Test Date: 2018-02-07 Test Time: 11:52:54 Pat Name: RENEE MCNEIL Department: Room: Gender: F Asset Management Analyst: : 1960 Requested By: ANH CASTORENA Order Number: [id number] Reading MD: Measurements Intervals [place] Rate: 85 P: 59 NH: 194 QRS: 56 QRSD: 90 T: 72 QT: 390 QTc: 464 Interpretive Statements SINUS RHYTHM INTERPOLATED ATRIAL PREMATURE COMPLEX(ES) QRS(T) CONTOUR ABNORMALITY CONSISTENT WITH ANTEROSEPTAL INFARCT AGE UNDETERMINED ABNORMAL ECG RI6.01 Unconfirmed report No previous ECG available for comparison
[2018-02-07 12:46] VITALS: BP 132/76
== END 2018-02-07 13:03 | disposition home or self-care (01) ==
LOC: ER 10:57
DX: R53.1 Weakness (principal); E87.1 Hypo-osmolality and hyponatremia; M54.6 Pain in thoracic spine; K21.9 Gastro-esophageal reflux disease without esophagitis
CPT/HCPCS: 36415; 70450; 80053; 81001; 82553; 83735; 84484; 85025; 87086; 87186; 93005; 96360; 99285-25; J7030

== ENCOUNTER 2019-12-11 09:31 | Emergency (ER) | payer OTHER ==
[~2019-12-11] VITALS: Ht 307.3 cm; Wt 47.6 kg
[~2019-12-11 09:31] MED LIST changes: -BUPR300T4 PO; +BUPR300T92 PO; -MINO100C PO; +MINO100C61 PO; +MULT-445 PO; -MULT1TAB52 PO
[2019-12-11 09:35] VITALS: BP 142/72
--- NOTE | 2019-12-11 09:59 | PHYS DOC ---
Past History Past Medical History: Bronchitis, Depression, Gallstones, GERD, Other Past Surgical History: Cholecystectomy Alcohol Use: None Drug Use: None General Adult EDM: Chief Complaint: MECHANICAL FALL HPI: HPI: Patient is a 59-year-old otherwise healthy female who presents after she fell last night mowing the grass. She has a scrape on her left elbow and her low back is bothering her. She did not hit her head she did not lose consciousness. She states her last tetanus shot was about 1 year ago. Despite the scrape on her left elbow she is able to move her elbow without any pain. She thinks she fell and hit a rock. [] Review of Systems: Review of Systems: Constitutional: Denies fever or chills Eyes: Denies change in visual acuity HENT: Denies nasal congestion or sore throat Respiratory: Denies cough or shortness of breath Cardiovascular: Denies chest pain or edema GI: Denies abdominal pain, nausea, vomiting, bloody stools or diarrhea : Denies dysuria Musculoskeletal: Per HPI Integument: Per HPI Neurologic: Denies headache, focal weakness or sensory changes Endocrine: Denies polyuria or polydipsia Lymphatic: Denies swollen glands Psychiatric: Denies depression or anxiety Heart Score: Risk Factors: Risk Factors: DM, Current or recent (<one month) smoker, HTN, HLP, family history of CAD, obesity. Risk Scores: Score 0 - 3: 2.5% MACE over next 6 weeks - Discharge Home Score 4 - 6: 20.3% MACE over next 6 weeks - Admit for Clinical Observation Score 7 - 10: 72.7% MACE over next 6 weeks - Early Invasive Strategies Allergies: Allergies: Allergies Coded Allergies Type Severity Reaction Last Updated Verified No Known Drug Allergies 05/03/17 No Physical Exam: PE: Constitutional: Well developed, well nourished, no acute distress, non-toxic appearance. [] HENT: Normocephalic, atraumatic, bilateral external ears normal, oropharynx moist, no oral exudates, nose normal. [] Eyes: PERRLA, EOMI, conjunctiva normal, no discharge. [] Neck: Normal range of motion, no tenderness, supple, no stridor. [] Cardiovascular:Heart rate regular rhythm, no murmur [] Lungs & Thorax: Bilateral breath sounds clear to auscultation [] Abdomen: Bowel sounds normal, soft, no tenderness, no masses, no pulsatile masses. [] Skin: Warm, dry, no erythema, no rash. [] Back: Some tenderness in the bilateral sacroiliac joints no crepitus no deformity. [] Extremities: She has a linear abrasion to the left elbow there is no laceration nothing that needs to be repaired . [] Neurologic: Alert and oriented X 3, normal motor function, normal sensory function, no focal deficits noted. [] Psychologic: Anxious. [] EKG: EKG: [] Radiology/Procedures: Radiology/Procedures: [] Course & Med Decision Making: Course & Med Decision Making Pertinent Labs and Imaging studies reviewed. (See chart for details) [] Dragon Disclaimer: Dragon Disclaimer: This electronic medical record was generated, in whole or in part, using a voice recognition dictation system. Departure Departure: Impression: Primary Impression: Abrasion of left elbow Qualified Codes: S50.312A - Abrasion of left elbow, initial encounter Additional Impression: Lumbar strain Qualified Codes: S39.012A - Strain of muscle, fascia and tendon of lower back, initial encounter Disposition: 01 HOME/RESIDENCE PRIOR TO ADM Condition: STABLE Referrals: IAN PHELPS MD (PCP) Patient Instructions: Abrasions, Back Exercises, Back Pain, Adult Additional Instructions: Activity as tolerated today. Take ibuprofen for the discomfort in your low back. Return to the emergency department with any new or concerning symptoms Justification of Admission: Justification of Admission: Justification of Admission Dx: BASSEM Marie DO Dec 11, 2019 09:59
== END 2019-12-11 10:09 | disposition home or self-care (01) ==
LOC: ER 09:31
DX: S39.012A Strain of muscle, fascia and tendon of lower back, initial encounter (principal); S50.312A Abrasion of left elbow, initial encounter; K21.9 Gastro-esophageal reflux disease without esophagitis; W18.39XA Other fall on same level, initial encounter; Y93.89 Activity, other specified; Y92.89 Other specified places as the place of occurrence of the external cause; Y99.8 Other external cause status
CPT/HCPCS: 99282

== ENCOUNTER → 2020-04-02 | Outpatient (CLI) | payer OTHER ==
[~2020-04-02] MED LIST changes: -PANT40TA5 PO; +PANT40TA6 PO
--- NOTE | 2020-04-02 17:45 | RAD ---
EXAM: KNEE LEFT 3V 04/02/2020 12:00 AM CLINICAL INDICATION:Worsening left knee pain COMPARISON:None TECHNIQUE:3 views of the left knee FINDINGS:No acute fracture. Alignment is normal. Joint spaces are maintained. There is no joint effusion or soft tissue abnormality. IMPRESSION:No acute osseous abnormality or significant degenerative joint disease. Electronically signed by: Alyssa Bacon MD (04/02/2020 5:42 PM) [id number]
== END | disposition home or self-care (01) ==
LOC: DXRAD 17:11
PROVIDERS: ATTEND Orthopaedic Surgery
DX: M25.562 Pain in left knee (principal)
CPT/HCPCS: 73562